=== PATIENT | female | born 1975 | race Caucasian/White ===

== ENCOUNTER 2016-08-03 19:27 | Emergency (ER) | payer OTHER ==
[2016-08-03 22:49] VITALS: BP 129/86
== END 2016-08-03 22:49 | disposition home or self-care (01) ==
LOC: ED 19:27
DX: H52.13 Myopia, bilateral (principal); R51 Headache; J45.909 Unspecified asthma, uncomplicated
CPT/HCPCS: J1200; J1885; J2765

== ENCOUNTER 2016-09-23 22:40 | Emergency (ER) | payer OTHER ==
[2016-09-24 00:18] LABS: BASOPHIL % 1.2 % (0-2); PLATELET COUNT 209 x10^3mcL (130-400); RED CELL DISTRIBUTION WIDTH 12.9 % (11.5-14.5)
[2016-09-24 00:30] LABS: CALCIUM 8.5 mg/dL (8.5-10.1); CHLORIDE SERUM 104 mmol/L (98-107); CREATININE SERUM 0.8 mg/dL (0.6-1.0); GFR1 > 60 mL/min; GLUCOSE SERUM 86 mg/dL (74-106); POTASSIUM SERUM 3.7 mmol/L (3.5-5.1); SODIUM SERUM 140 mmol/L (136-145)
[2016-09-24 00:53] LABS: microscopic required? YES; urine erythrocyte NEGATIVE (NEGATIVE)
[2016-09-24 00:57] VITALS: BP 145/96
== END 2016-09-24 00:57 | disposition home or self-care (01) ==
LOC: ED 22:40
PROVIDERS: Emergency Medicine
DX: N39.0 Urinary tract infection, site not specified (principal)

== ENCOUNTER 2017-04-11 23:32 | Emergency (ER) | payer OTHER ==
[~2017-04-11] VITALS: Ht 170.2 cm; Wt 90.3 kg
[2017-04-11 23:39] VITALS: BP 153/104; Ht 170.2 cm; Wt 90.3 kg
== END 2017-04-12 01:17 | disposition left against medical advice (07) ==
LOC: ED 23:32
DX: Z53.21 Procedure and treatment not carried out due to patient leaving prior to being seen by health care provider (principal)

== ENCOUNTER 2017-06-21 08:48 | Emergency (ER) | payer OTHER ==
[~2017-06-21] VITALS: Ht 172.7 cm; Wt 90.3 kg
[2017-06-21 08:51] VITALS: Ht 172.7 cm; Wt 90.3 kg
[2017-06-21 09:35] LABS: microscopic required? NO
[2017-06-21 09:49] LABS: BASOPHIL % 0.5 % (0-2); PLATELET COUNT 226 x10^3mcL (130-400); RED CELL DISTRIBUTION WIDTH 12.8 % (11.5-14.5)
[2017-06-21 10:46] LABS: urine erythrocyte NEGATIVE (NEGATIVE)
[2017-06-21 11:02] LABS: CHLORIDE SERUM 104 mmol/L (98-107); GLUCOSE SERUM 103 mg/dL (74-106); POTASSIUM SERUM 3.9 mmol/L (3.5-5.1); SODIUM SERUM 138 mmol/L (136-145)
[2017-06-21 11:03] LABS: ALBUMIN 3.7 g/dL (3.4-5.0); AST/SGOT 21 U/L (15-37); BILIRUBIN TOTAL 0.6 mg/dL (0.20-1.00); CALCIUM 8.4 mg/dL (8.5-10.1); CREATININE SERUM 0.8 mg/dL (0.6-1.0); GFR1 > 60 mL/min; TOTAL PROTEIN, SERUM 6.8 g/dL (6.4-8.2)
[2017-06-21 11:04] LABS: ALKALINE PHOSPHATASE 71 U/L (46-116); ALT/SGPT 24 U/L (14-59); AMYLASE 43 U/L (25-115); LIPASE 97 IU/L (73-393)
[2017-06-21 12:36] VITALS: BP 134/95
== END 2017-06-21 12:36 | disposition left against medical advice (07) ==
LOC: ED 08:48
PROVIDERS: Emergency Medicine
DX: K52.9 Noninfective gastroenteritis and colitis, unspecified (principal); J45.909 Unspecified asthma, uncomplicated; E11.9 Type 2 diabetes mellitus without complications; F17.210 Nicotine dependence, cigarettes, uncomplicated
CPT/HCPCS: J1885; Q9967

== ENCOUNTER 2017-08-28 01:36 | Emergency (ER) | payer OTHER ==
[~2017-08-28] VITALS: Ht 170.2 cm; Wt 97.2 kg
[2017-08-28 02:13] VITALS: Ht 170.2 cm; Wt 97.2 kg
[2017-08-28 04:12] VITALS: BP 136/81
== END 2017-08-28 04:12 | disposition home or self-care (01) ==
LOC: ED 01:36
DX: K08.89 Other specified disorders of teeth and supporting structures (principal)
CPT/HCPCS: J1885

== ENCOUNTER 2018-02-23 22:27 | Emergency (ER) | payer OTHER ==
[~2018-02-23] VITALS: Ht 170.2 cm; Wt 101.2 kg
[2018-02-23 22:33] VITALS: BP 145/95; Ht 170.2 cm; Wt 101.2 kg
== END 2018-02-24 00:49 | disposition left against medical advice (07) ==
LOC: ED 22:27
DX: Z53.21 Procedure and treatment not carried out due to patient leaving prior to being seen by health care provider (principal)

== ENCOUNTER 2018-04-10 07:15 | Emergency (ER) | payer MEDICAID ==
[~2018-04-10] VITALS: Ht 170.2 cm; Wt 97.5 kg
[2018-04-10 07:23] VITALS: Ht 170.2 cm; Wt 97.5 kg
[2018-04-10 09:30] VITALS: BP 139/83
== END 2018-04-10 09:30 | disposition home or self-care (01) ==
LOC: ED 07:15
DX: R11.2 Nausea with vomiting, unspecified (principal); R51 Headache; J45.909 Unspecified asthma, uncomplicated; Z87.442 Personal history of urinary calculi
CPT/HCPCS: 87804; J1885; Q0162

== ENCOUNTER 2018-09-17 05:14 | Emergency (ER) | payer SELFPAY ==
[~2018-09-17] VITALS: Ht 172.7 cm; Wt 99.3 kg
[2018-09-17 05:19] VITALS: BP 116/92; Ht 172.7 cm; Wt 99.3 kg
== END 2018-09-17 05:55 | disposition left against medical advice (07) ==
LOC: ED 05:14
DX: Z53.21 Procedure and treatment not carried out due to patient leaving prior to being seen by health care provider (principal)

== ENCOUNTER 2019-03-08 22:32 | Emergency (ER) | payer SELFPAY | END 2019-03-08 23:10 | disposition left against medical advice (07) | LOC: ED 22:32 | DX: Z53.21 Procedure and treatment not carried out due to patient leaving prior to being seen by health care provider (principal) ==

== ENCOUNTER 2019-03-10 03:21 | Emergency (ER) | payer SELFPAY ==
[~2019-03-10] VITALS: Ht 170.2 cm; Wt 96.2 kg
[2019-03-10 03:25] VITALS: Ht 170.2 cm; Wt 96.2 kg
[2019-03-10 05:10] LABS: AMPHETAMINE QUAL UR POSITIVE (See below)
[2019-03-10 05:38] VITALS: BP 130/68
== END 2019-03-10 05:38 | disposition home or self-care (01) ==
LOC: ED 03:21
PROVIDERS: Emergency Medicine
DX: J02.9 Acute pharyngitis, unspecified (principal); R21 Rash and other nonspecific skin eruption; F15.90 Other stimulant use, unspecified, uncomplicated; J45.909 Unspecified asthma, uncomplicated; Z87.442 Personal history of urinary calculi
CPT/HCPCS: 87804; J1885